=== PATIENT | female | born 1970 | race Caucasian/White ===

== ENCOUNTER 2016-02-19 21:41 | Emergency (ER) | payer OTHER ==
[2016-02-19] MEDS ORDERED: ONDANSETRON 4MG/2ML VIAL (J2405) As Ordered ONE (23:46)
[2016-02-19] MEDS ORDERED: KETOROLAC 30 MG/ML VIAL (J1885) As Ordered ONE (23:46)
[2016-02-20 00:01] LABS: BASO # 0.1 K/mm3 (0.0-0.2); BASO % 0.4 % (0.0-1.0); EOS # 0.2 K/mm3 (0.0-0.50); LARGE UNSTAINED CELL # 0.1 K/mm3 (0.0-0.4); LARGE UNSTAINED CELL % 0.8 % (0.0-4.0); LYMPH # 1.4 K/mm3 (1.5-4.5); LYMPH % 7.1 % (24.0-44.0); MEAN CORPUSCULAR HEMOGLOBIN 30.9 pg (27.0-33.0); MEAN CORPUSCULAR HGB CONC 33.5 g/dl (32.0-36.5); MEAN CORPUSCULAR VOLUME 92.2 fl (80.0-96.0); MONO # 0.8 K/mm3 (0.0-0.8); MONO % 4.8 % (0.0-5.0); NEUTROPHILS # 15.1 K/mm3 (1.8-7.7); NEUTROPHILS % 85.8 % (36.0-66.0); PLATELET COUNT, AUTOMATED 283 k/mm3 (150-450); RED CELL DISTRIBUTION WIDTH 12.5 % (11.5-14.5); WHITE BLOOD COUNT 17.6 K/mm3 (4.0-10.0)
[2016-02-20 00:48] LABS: ALBUMIN 3.8 GM/DL (3.2-5.2); ALBUMIN/GLOBULIN RATIO 1.19 (1.00-1.93); ALKALINE PHOSPHATASE 85 U/L (45-117); ALT/SGPT 18 U/L (12-78); ANION GAP 9 MEQ/L (8-16); AST/SGOT 10 U/L (15-37); BILIRUBIN,DIRECT 0.1 MG/DL (0.0-0.2); BILIRUBIN,TOTAL 0.4 MG/DL (0.2-1.0); BLOOD UREA NITROGEN 12 MG/DL (7-18); CALCIUM LEVEL 8.3 MG/DL (8.5-10.1); CARBON DIOXIDE LEVEL 25 MEQ/L (21-32); CHLORIDE LEVEL 104 MEQ/L (98-107); CREATININE FOR GFR 0.67 MG/DL (0.55-1.02); GLOMERULAR FILTRATION RATE > 60.0 (>58); GLUCOSE, FASTING 121 MG/DL (70-105); SODIUM LEVEL 138 MEQ/L (136-145)
[2016-02-20] MEDS ORDERED: ISOVUE-370 76% 100ML VIAL (Q9967) As Ordered ONE (01:28)
--- NOTE | 2016-02-20 02:50 | REPUSA ---
CLINICAL HISTORY: Abdominal pain. TECHNIQUE: Multiple axial, sagittal and coronal CT images were obtained through the abdomen and pelvi s after administration of intravenous contrast material. COMMENTS: The liver is of uniform attenuation without mass or defect. There is no intra or extrahepatic biliary ductal dilatation. The spleen is normal. The gallbladder is within normal limits. The pancreas is of normal contour and attenuation characteristics. There is no evidence of adrenal mass. Both kidneys demonstrate prompt and equal nephrograms. The kidneys are normal in size, shape and conf iguration. There is no evidence of renal or ureteral mass. No renal or ureteral calculi are identifie d. There is no hydroureter or hydronephrosis. Thickened stomach. Small amount of perisplenic fluid. S cattered fluid-filled small bowels. No evidence for appendicitis. There is no bowel wall thickening. No evidence for small or large shanna l obstruction. There is no evidence of abdominal ascites or lymphadenopathy. There is no evidence of intrinsic or extrinsic bladder mass. There is no pelvic ascites or lymphadeno renato. 6.7 cm left ovarian cyst. Thickened bladder. Images of the lung bases show no evidence of pleural or parenchymal mass. There are no pleural effusi ons. The bony structures are free of lytic or blastic lesions. Multilevel degenerative changes are seen in volving the thoracolumbar spine. Scattered calcifications are seen involving the aorta and major bran ches compatible with atherosclerosis. IMPRESSION: Suspected mild gastritis. Left ovarian cyst. Thickened bladder. Small amount of perisplenic fluid. Scattered fluid-filled small bowels. Nonspecific finding. Possibly mild ileus. Fecal stasis in the cecum. Thank you for your kind referral of this patient.
[2016-02-20] MEDS ORDERED: traMADol 50 MG TAB As Ordered ONE (03:15)
--- NOTE | 2016-02-20 03:25 | EDDOCDS ---
Physician Documentation [facility] Name: Cele Gutierrez Age: 45 yrs Sex: Female : 1970 Arrival Date: 02/19/2016 Time: 21:41 Bed I5 / M5 Private MD: NO PRIMARY PHYSICIAN, . Disposition: 02/20/16 03:07 Discharged to Home/Self Care. Impression: Unspecified ovarian cysts - left. - Condition is Stable. - Discharge Instructions: Ovarian Cyst. - Prescriptions for Ultram 50 mg Oral Tablet - take 1 tablet by ORAL route every 6 hours As needed MDD: 4 tabs; 20 tablet. - Medication Reconciliation, Local Pharmacy Hours form. - Follow up: Emergency Department; When: As needed; Reason: Worsening of conditions. Follow up: Aleksandra Auguste MD; When: Call to arrange an appointment; Reason: Wound/Symptom Recheck, Recheck today's complaints, Worsening of conditions, Continuance of care. - Problem is an ongoing problem. - Symptoms have improved. Historical: - Allergies: no known allergies; - Home Meds: 1. Levothyroxine Oral Unknown once daily 2. Iron CR Oral Unknown daily 3. Calcium + Vitamin D Oral Unknown daily 4. Vitamin B-6 Oral daily 5. seravital daily - PMHx: Anemia; Hypothyroidism; - PSHx: Hysterectomy; - Social history: Smoking status: Patient states former smoker of tobacco. No barriers to communication noted, The patient speaks fluent Pashto. - Family history: No immediate family members are acutely ill. - : The pt / caregiver states he / she is not on anticoagulants. Home medication list is obtained from the patient. - Exposure Risk Screening:: None identified. 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 8 in. (172.72 cm) (R); Pain 8/10; 02/19 00:41 Pain 0/10; kmg1 03:09 BP 111 / 68 RA Sitting (auto/reg); Pulse 68 MON; Resp 20 S; Temp 99.2(T); Pulse Ox 96% cln on R/A; Pain 0/10; 02/18 21:44 Body Mass Index 27.67 (82.55 kg, 172.72 cm) gr2 MDM: 02/18 23:26 Financial registration complete. gjb 23:27 Undo -Financial registration. gjb 23:31 NS 0.9% 1000 ml IV at bolus once ordered. cc10 23:31 Ondansetron 4 mg IVP once ordered. cc10 23:31 ketorolac 30 mg IVP once ordered. cc10 23:31 IV Saline Lock ordered. cc10 23:31 Undress patient appropriately for examination ordered. cc10 23:32 Urine Culture Ordered. EDMS 23:32 Basic Metabolic Profile Ordered. EDMS 23:32 CBC with Diff Ordered. EDMS 23:32 Lipase Ordered. EDMS 23:32 Liver Profile Ordered. EDMS 23:32 Urinalysis Ordered. EDMS 23:32 NOTHING BY MOUTH+DIET ordered. EDMS 02/19 00:28 CBC with Diff Reviewed. cc10 00:28 Urinalysis Reviewed. cc10 00:29 CT ABD & PELVIS: IV Contrast Only Ordered. EDMS 00:58 Financial registration complete. hs2 01:02 Basic Metabolic Profile Reviewed. cc10 01:02 Liver Profile Reviewed. cc10 01:02 Lipase Reviewed. cc10 01:17 [facility] Payment Agreement was scanned into [employer] and attached to record. hs2 03:08 traMADol 50mg- 4 pack 1 packets PO Per package directions; Dispense with patient. Take cc10 1 tab every 6 hours as needed. ordered. Administered Medications: 02/18 23:54 Drug: NS 0.9% 1000 ml [sodium chloride 0.9 % intravenous solution] Route: IV; Rate: kmg1 bolus; Site: right antecubital; 23:55 Drug: Ondansetron 4 mg Route: IVP; Site: right antecubital; kmg1 23:55 Drug: ketorolac 30 mg [ketorolac 30 mg/mL (1 mL) injection solution (1 mL)] Route: IVP; kmg1 Site: right antecubital; 02/19 00:41 Follow up: Pain 0/10 Adult; Response: Pain is resolved kmg1 03:14 Drug: traMADol 50mg- 4 pack 1 packets [tramadol 50 mg tablet (1 tabs)] {Co-Signature: kmg1 su (Maura Brothers RN).} Route: PO; Signatures: Dispatcher [employer] EDShayna Devries RN RN kmg1 Miryam Gill RN RN mcp Coniski, Colin, PA-C PA-C cc10 Medina Garcia Hillary, Reg Reg hs2 Maura blue The chart was reviewed and I authenticate all verbal orders and agree with the evaluation and treatment provided.Attachments: 01:17 COUNT INCLUDES THE [facility] Payment Agreement hs2 MTDD
--- NOTE | 2016-02-20 03:25 | EDDOCDS ---
Nurse's Notes [facility] Name: Cele Gutierrez Age: 45 yrs Sex: Female : 1970 Arrival Date: 02/19/2016 Time: 21:41 Bed I5 / M5 Private MD: NO PRIMARY PHYSICIAN, . Diagnosis: Unspecified ovarian cysts-left Presentation: 02/18 21:54 Presenting complaint: Patient states: Pain in left side since last night. Was seen in [facility] this am and pain still persists. Risk factors: the patient reports no vaginal bleeding. Adult Sepsis Screening: The patient does not have new or worsening altered mentation. Patient's respiratory rate is less than 22. Systolic blood pressure is greater than 100. Patient has a qSOFA score of 0- Negative Sepsis Screen. Suicide/Homicide risk assessment- the patient denies having any suicidal and/or homicidal ideations and does not present with any other emotional, behavioral or mental health complaints. Status: Patient is not a member service specialist or dependent. Transition of care: patient was not received from another setting of care. 21:54 Acuity: LOR Level 3 [facility] 21:54 Method Of Arrival: Walkin/Carried/Asstd [facility] Triage Assessment: 21:57 General: Appears uncomfortable, Behavior is cooperative. Pain: Location: left flank [facility] Pain currently is 8 out of 10 on a pain scale. HIV screening NA for this visit Offered previously. Neurological: No deficits noted. Respiratory: Airway is patent Respiratory effort is even, unlabored. GI: Reports left flank pain. Derm: Skin is pink, warm & dry. EDUCATIONAL AID: 21:57 4, Living 4, LMP N/A - Hysterectomy [facility] Historical: - Allergies: no known allergies; - Home Meds: 1. Levothyroxine Oral Unknown once daily 2. Iron CR Oral Unknown daily 3. Calcium + Vitamin D Oral Unknown daily 4. Vitamin B-6 Oral daily 5. seravital daily - PMHx: Anemia; Hypothyroidism; - PSHx: Hysterectomy; - Social history: Smoking status: Patient states former smoker of tobacco. No barriers to communication noted, The patient speaks fluent Trinidadian. - Family history: No immediate family members are acutely ill. - : The pt / caregiver states he / she is not on anticoagulants. Home medication list is obtained from the patient. - Exposure Risk Screening:: None identified. Screenin/08 00:00 Screening information is obtained from the patient. Fall risk: No risks identified. kmg1 Assistance ADL's: requires no assistance with activities of daily living. Abuse/DV Screen: The patient / caregiver reports he/she is: not in a situation that causes fear, pain or injury. Nutritional screening: No deficits noted. Advance Directives: There is no active DNR order. home support is adequate. Assessment: 00:00 General: Appears in no apparent distress, uncomfortable, Behavior is appropriate for kmg1 age, cooperative, pleasant. Pain: Location: left flank Pain currently is 8 out of 10 on a pain scale. Quality of pain is described as sharp, stabbing. GI: Abdomen is non- distended Bowel sounds present X 4 quads. Abd is soft X 4 quads Abd is tender to palpation in left lower quadrant. 00:41 Reassessment: Patient appears in no apparent distress at this time. Patient denies pain kmg1 at this time. Patient states feeling better. Patient states symptoms have improved. 01:45 Reassessment: Patient appears in no apparent distress at this time. Patient denies pain kmg1 at this time. Patient states feeling better. Patient states symptoms have improved. Continues without discomfort. Resting quietly on stertcher. 03:23 General: Appears in no apparent distress, comfortable, Behavior is appropriate for age, kmg1 cooperative, pleasant. Pain: Denies pain. Vital Signs: 02/18 21:44 BP 135 / 75; Pulse 86; Resp 18 S; Temp 98.6(O); Pulse Ox 97% on R/A; Weight 82.55 kg gr2 (R); Height 5 ft. 8 in. (172.72 cm) (R); Pain 8/10; 02/19 00:41 Pain 0/10; kmg1 03:09 BP 111 / 68 RA Sitting (auto/reg); Pulse 68 MON; Resp 20 S; Temp 99.2(T); Pulse Ox 96% cln on R/A; Pain 0/10; 02/18 21:44 Body Mass Index 27.67 (82.55 kg, 172.72 cm) gr2 Vitals: 02/18 21:44 Log In Time: February 19, 2016 at 21:44. gr2 ED Course: 21:43 Patient visited by Marta Montilla. gr2 21:43 Patient moved to Waiting gr2 21:44 NO PRIMARY PHYSICIAN, . is Private Physician. gr2 21:45 Patient visited by Marta Montilla. gr2 21:45 Patient moved to Pre RCE gr2 21:55 Triage Initiated mcp 21:58 Patient visited by Miryam Gill RN. mcp 23:16 Patient moved to Triage 1 cz 23:26 Anuj Barry PA-C is PHCP. cc10 23:26 Jean Olea DO is Attending Physician. cc10 23:26 Patient visited by Anuj Barry PA-C. cc10 23:26 Patient visited by Anuj Barry PA-C. cc10 23:30 Patient moved to I5 / M5 cz 08 00:00 The patient / caregiver is instructed regarding the plan of care and ED course. kmg1 00:07 Patient visited by Yamileth Waters LPN. cp1 00:07 Inserted saline lock: 20 gauge in right antecubital area and blood collected. The cp1 patient tolerated the procedure well. No procedures done that require assistance. 00:41 Patient visited by Shayna Peters RN. kmg1 01:08 Patient name changed from Cele\S\M\S\[place]\S\ to Cele\S\Juana\S\Brenda. EDMS 01:17 [facility] Payment Agreement was scanned into [employer] and attached to record. hs2 01:59 Patient visited by Yamileth Waters LPN. cp1 03:05 Patient visited by Yamileth Waters LPN. cp1 03:07 Aleksandra Auguste MD is Referral Physician. cc10 03:09 Patient visited by Trena Rainey PCA. cln 03:12 CT ABD & PELVIS: IV Contrast Only Returned. EDMS 03:23 Discontinued lock bleeding controlled, pressure dressing applied, No redness/swelling kmg1 at site. 03:24 Patient visited by Shayna Peters RN. kmg1 Administered Medications: 02/18 23:54 Drug: NS 0.9% 1000 ml [sodium chloride 0.9 % intravenous solution] Route: IV; Rate: kmg1 bolus; Site: right antecubital; 23:55 Drug: Ondansetron 4 mg Route: IVP; Site: right antecubital; kmg1 23:55 Drug: ketorolac 30 mg [ketorolac 30 mg/mL (1 mL) injection solution (1 mL)] Route: IVP; [facility] Site: right antecubital; 02/19 00:41 Follow up: Pain 0/10 Adult; Response: Pain is resolved [facility] 03:14 Drug: traMADol 50mg- 4 pack 1 packets [tramadol 50 mg tablet (1 tabs)] {Co-Signature: [facility] feb (Maura Brothers RN).} Route: PO; Order Results: Lab Order: Basic Metabolic Profile; SPEC'M 02/20/16 00:15 Test: GLUCOSE, FASTING; Value: 121; Range: 70-105; Abnormal: Above high normal; Units: MG/DL; Status: F Test: BLOOD UREA NITROGEN; Value: 12; Range: 7-18; Units: MG/DL; Status: F Test: CREATININE FOR GFR; Value: 0.67; Range: 0.55-1.02; Units: MG/DL; Status: F Test: GLOMERULAR FILTRATION RATE; Value: > 60.0; Range: >58; Status: F Test: SODIUM LEVEL; Value: 138; Range: 136-145; Units: MEQ/L; Status: F Test: POTASSIUM SERUM; Value: 4.0; Range: 3.5-5.1; Units: MEQ/L; Status: F Test: CHLORIDE LEVEL; Value: 104; Range: 98-107; Units: MEQ/L; Status: F Test: CARBON DIOXIDE LEVEL; Value: 25; Range: 21-32; Units: MEQ/L; Status: F Test: ANION GAP; Value: 9; Range: 8-16; Units: MEQ/L; Status: F Test: CALCIUM LEVEL; Value: 8.3; Range: 8.5-10.1; Abnormal: Below low normal; Units: MG/DL; Status: F Test Note: ; Units are mL/min/1.73 m2 Chronic Kidney Disease Staging per NKF: Stage I & II GFR >=60 Normal to Mildly Decreased Stage III GFR 30-59 Moderately Decreased Stage IV GFR 15-29 Severely Decreased Stage V GFR <15 Very Little GFR Left ESRD GFR <15 on ELECTRIC WELL LOGGING OPERATOR Lab Order: CBC with Diff; SPEC'M 02/19/16 23:54 Test: WHITE BLOOD COUNT; Value: 17.6; Range: 4.0-10.0; Abnormal: Above high normal; Units: K/mm3; Status: F Test: RED BLOOD COUNT; Value: 4.49; Range: 4.00-5.40; Units: M/mm3; Status: F Test: HEMOGLOBIN; Value: 13.9; Range: 12.0-16.0; Units: g/dl; Status: F Test: HEMATOCRIT; Value: 41.4; Range: 36.0-47.0; Units: %; Status: F Test: MEAN CORPUSCULAR VOLUME; Value: 92.2; Range: 80.0-96.0; Units: fl; Status: F Test: MEAN CORPUSCULAR HEMOGLOBIN; Value: 30.9; Range: 27.0-33.0; Units: pg; Status: F Test: MEAN CORPUSCULAR HGB CONC; Value: 33.5; Range: 32.0-36.5; Units: g/dl; Status: F Test: RED CELL DISTRIBUTION WIDTH; Value: 12.5; Range: 11.5-14.5; Units: %; Status: F Test: PLATELET COUNT, AUTOMATED; Value: 283; Range: 150-450; Units: k/mm3; Status: F Test: NEUTROPHILS %; Value: 85.8; Range: 36.0-66.0; Abnormal: Above high normal; Units: %; Status: F Test: LYMPH %; Value: 7.1; Range: 24.0-44.0; Abnormal: Below low normal; Units: %; Status: F Test: MONO %; Value: 4.8; Range: 0.0-5.0; Units: %; Status: F Test: EOS %; Value: 1.0; Range: 0.0-3.0; Units: %; Status: F Test: BASO %; Value: 0.4; Range: 0.0-1.0; Units: %; Status: F Test: LARGE UNSTAINED CELL %; Value: 0.8; Range: 0.0-4.0; Units: %; Status: F Test: NEUTROPHILS #; Value: 15.1; Range: 1.8-7.7; Abnormal: Above high normal; Units: K/mm3; Status: F Test: LYMPH #; Value: 1.4; Range: 1.5-4.5; Abnormal: Below low normal; Units: K/mm3; Status: F Test: MONO #; Value: 0.8; Range: 0.0-0.8; Units: K/mm3; Status: F Test: EOS #; Value: 0.2; Range: 0.0-0.50; Units: K/mm3; Status: F Test: BASO #; Value: 0.1; Range: 0.0-0.2; Units: K/mm3; Status: F Test: LARGE UNSTAINED CELL #; Value: 0.1; Range: 0.0-0.4; Units: K/mm3; Status: F Lab Order: Lipase; SPEC' 02/20/16 00:15 Test: LIPASE; Value: 102; Range: 73-393; Units: U/L; Status: F Lab Order: Liver Profile; [facility]' 02/20/16 00:15 Test: AST/SGOT; Value: 10; Range: 15-37; Abnormal: Below low normal; Units: U/L; Status: F Test: ALT/SGPT; Value: 18; Range: 12-78; Units: U/L; Status: F Test: ALKALINE PHOSPHATASE; Value: 85; Range: 45-117; Units: U/L; Status: F Test: BILIRUBIN,TOTAL; Value: 0.4; Range: 0.2-1.0; Units: MG/DL; Status: F Test: BILIRUBIN,DIRECT; Value: 0.1; Range: 0.0-0.2; Units: MG/DL; Status: F Test: TOTAL PROTEIN; Value: 7.0; Range: 6.4-8.2; Units: GM/DL; Status: F Test: ALBUMIN; Value: 3.8; Range: 3.2-5.2; Units: GM/DL; Status: F Test: ALBUMIN/GLOBULIN RATIO; Value: 1.19; Range: 1.00-1.93; Status: F Lab Order: Urinalysis; SPEC' 02/19/16 23:54 Test: APPEARANCE, URINE; Value: CLEAR; Range: CLEAR; Status: F Test: COLOR, URINE; Value: YELLOW; Range: YELLOW; Status: F Test: PH,URINE; Value: 5.0; Range: 5.0-9.0; Units: UNITS; Status: F Test: SPECIFIC GRAVITY URINE AUTO; Value: 1.027; Range: 1.002-1.035; Status: F Test: PROTEIN, URINE AUTO; Value: NEGATIVE; Range: NEGATIVE; Units: mg/dL; Status: F Test: GLUCOSE, URINE (UA) AUTO; Value: NEGATIVE; Range: NEGATIVE; Units: mg/dL; Status: F Test: KETONE, URINE AUTO; Value: TRACE; Range: NEGATIVE; Abnormal: Above high normal; Units: mg/dL; Status: F Test: UROBILINOGEN, URINE AUTO; Value: 0.2; Range: 0.0-2.0; Units: mg/dL; Status: F Test: BILIRUBIN, URINE AUTO; Value: NEGATIVE; Range: NEGATIVE; Status: F Test: NITRITE, URINE AUTO; Value: NEGATIVE; Range: NEGATIVE; Status: F Test: LEUKOCYTE ESTERASE, URINE AUTO; Value: NEGATIVE; Range: NEGATIVE; Status: F Test: BLOOD, URINE BLOOD; Value: 1+; Range: NEGATIVE; Abnormal: Above high normal; Status: F Test: WBC, URINE AUTO; Value: 0; Range: 0-3; Units: /HPF; Status: F Test: RBC, URINE AUTO; Value: 5; Range: 0-3; Abnormal: Above high normal; Units: /HPF; Status: F Test: BACTERIA, URINE AUTO; Value: NEGATIVE; Range: NEGATIVE; Status: F Test: SQUAMOUS EPITHELIAL CELL UR AU; Value: 1; Range: 0-6; Units: /HPF; Status: F Test: MUCUS, URINE; Value: SMALL; Range: NEGATIVE; Status: F Test: HYALINE CAST, URINE AUTO; Value: 0; Range: 0-1; Units: /LPF; Status: F Radiology Order: CT ABD & PELVIS: IV Contrast Only Test: CT ABD & PELVIS: IV Contrast Only REASON FOR EXAMINATION: Diverticulitis; ; CLINICAL HISTORY: Abdominal pain.; TECHNIQUE: Multiple axial, sagittal and coronal CT images were obtained through the abdomen and pelvi; s after administration of intravenous contrast material.; COMMENTS:; The liver is of uniform attenuation without mass or defect. There is no intra or extrahepatic biliary; ductal dilatation. The spleen is normal. The gallbladder is within normal limits. The pancreas is of; normal contour and attenuation characteristics. There is no evidence of adrenal mass.; Both kidneys demonstrate prompt and equal nephrograms. The kidneys are normal in size, shape and conf; iguration. There is no evidence of renal or ureteral mass. No renal or ureteral calculi are identifie; d. There is no hydroureter or hydronephrosis. Thickened stomach. Small amount of perisplenic fluid. S; cattered fluid-filled small bowels.; No evidence for appendicitis. There is no bowel wall thickening. No evidence for small or large shanna; l obstruction. There is no evidence of abdominal ascites or lymphadenopathy.; There is no evidence of intrinsic or extrinsic bladder mass. There is no pelvic ascites or lymphadeno; renato. 6.7 cm left ovarian cyst. Thickened bladder.; Images of the lung bases show no evidence of pleural or parenchymal mass. There are no pleural effusi; ons.; The bony structures are free of lytic or blastic lesions. Multilevel degenerative changes are seen in; volving the thoracolumbar spine. Scattered calcifications are seen involving the aorta and major bran; ches compatible with atherosclerosis.; IMPRESSION:; Suspected mild gastritis.; Left ovarian cyst.; Thickened bladder.; Small amount of perisplenic fluid.; Scattered fluid-filled small bowels. Nonspecific finding. Possibly mild ileus.; Fecal stasis in the cecum.; Thank you for your kind referral of this patient.; ; Outcome: 03:07 Discharge ordered by Provider. cc10 03:23 Discharge Assessment: Patient awake, alert and oriented x 3. No cognitive and/or kmg1 functional deficits noted. Patient verbalized understanding of disposition instructions. Patient awake and alert. patient administered narcotics - no. The following High Risk Discharge criteria are identified: None. Discharged to home ambulatory, with significant other. Condition: improved. Discharge instructions given to patient, Instructed on discharge instructions, follow up and referral plans. medication usage, Demonstrated understanding of instructions, medications, Pt was receptive of discharge instructions/ teaching. Prescriptions given X 1. CT Study completed. Property sent home with patient. 03:24 Patient left the ED. km Signatures: [facility] Shayna Peters RN RN [facility] Miryam Gill RN RN mcp Zecher, Calvin, RN RN cz Perkins, Cheryl,POLICE SERVICE TECHNICIAN POLICE SERVICE TECHNICIAN cp1 Marta Montilla gr2 Anuj Barry, PA-C PA-C cc10 Marizol Murphy, Reg Reg hs2 Trena Rainey, VEHICLE SAFETY INSPECTOR VEHICLE SAFETY INSPECTOR cln Maura Brothers RN su MTDD
--- NOTE | 2016-02-22 12:27 | EDDOCDS ---
Physician Documentation [facility] Name: Cele Gutierrez Age: 45 yrs Sex: Female : 1970 Arrival Date: 02/19/2016 Time: 21:41 Bed I5 / M5 Private MD: NO PRIMARY PHYSICIAN, . Disposition: 02/20/16 03:07 Discharged to Home/Self Care. Impression: Unspecified ovarian cysts - left. - Condition is Stable. - Discharge Instructions: Ovarian Cyst. - Prescriptions for Ultram 50 mg Oral Tablet - take 1 tablet by ORAL route every 6 hours As needed MDD: 4 tabs; 20 tablet. - Medication Reconciliation, Local Pharmacy Hours form. - Follow up: Emergency Department; When: As needed; Reason: Worsening of conditions. Follow up: Aleksandra Auguste MD; When: Call to arrange an appointment; Reason: Wound/Symptom Recheck, Recheck today's complaints, Worsening of conditions, Continuance of care. - Problem is an ongoing problem. - Symptoms have improved. Historical: - Allergies: no known allergies; - Home Meds: 1. Levothyroxine Oral Unknown once daily 2. Iron CR Oral Unknown daily 3. Calcium + Vitamin D Oral Unknown daily 4. Vitamin B-6 Oral daily 5. seravital daily - PMHx: Anemia; Hypothyroidism; - PSHx: Hysterectomy; - Social history: Smoking status: Patient states former smoker of tobacco. No barriers to communication noted, The patient speaks fluent Welsh. - Family history: No immediate family members are acutely ill. - : The pt / caregiver states he / she is not on anticoagulants. Home medication list is obtained from the patient. - Exposure Risk Screening:: None identified. KEY SANDER: 02/18 21:57 4, Living 4, LMP N/A - Hysterectomy mcp Vital Signs: 21:44 BP 135 / 75; Pulse 86; Resp 18 S; Temp 98.6(O); Pulse Ox 97% on R/A; Weight 82.55 kg / gr2 181.99 lbs (R); Height 5 ft. 8 in. (172.72 cm) (R); Pain 8/10; 02/19 00:41 Pain 0/10; kmg1 03:09 BP 111 / 68 RA Sitting (auto/reg); Pulse 68 MON; Resp 20 S; Temp 99.2(T); Pulse Ox 96% cln on R/A; Pain 0/10; 02/18 21:44 Body Mass Index 27.67 (82.55 kg, 172.72 cm) gr2 MDM: 02/18 23:26 Financial registration complete. gjb 23:27 Undo -Financial registration. gjb 23:31 NS 0.9% 1000 ml IV at bolus once ordered. cc10 23:31 Ondansetron 4 mg IVP once ordered. cc10 23:31 ketorolac 30 mg IVP once ordered. cc10 23:31 IV Saline Lock ordered. cc10 23:31 Undress patient appropriately for examination ordered. cc10 23:32 Urine Culture Ordered. EDMS 23:32 Basic Metabolic Profile Ordered. EDMS 23:32 CBC with Diff Ordered. EDMS 23:32 Lipase Ordered. EDMS 23:32 Liver Profile Ordered. EDMS 23:32 Urinalysis Ordered. EDMS 23:32 NOTHING BY MOUTH+DIET ordered. EDMS 02/19 00:28 CBC with Diff Reviewed. cc10 00:28 Urinalysis Reviewed. cc10 00:29 CT ABD & PELVIS: IV Contrast Only Ordered. EDMS 00:58 Financial registration complete. hs2 01:02 Basic Metabolic Profile Reviewed. cc10 01:02 Liver Profile Reviewed. cc10 01:02 Lipase Reviewed. cc10 01:17 [facility] Payment Agreement was scanned into Ord[employer] and attached to record. hs2 03:08 traMADol 50mg- 4 pack 1 packets PO Per package directions; Dispense with patient. Take cc10 1 tab every 6 hours as needed. ordered. 08:05 T-Sheet-- Draft Copy was scanned into [employer] and attached to record. [facility] Administered Medications: 02/18 23:54 Drug: NS 0.9% 1000 ml [sodium chloride 0.9 % intravenous solution] Route: IV; Rate: kmg1 bolus; Site: right antecubital; 23:55 Drug: Ondansetron 4 mg Route: IVP; Site: right antecubital; kmg1 23:55 Drug: ketorolac 30 mg [ketorolac 30 mg/mL (1 mL) injection solution (1 mL)] Route: IVP; kmg1 Site: right antecubital; 02/19 00:41 Follow up: Pain 0/10 Adult; Response: Pain is resolved kmg1 03:14 Drug: traMADol 50mg- 4 pack 1 packets [tramadol 50 mg tablet (1 tabs)] {Co-Signature: km su (Maura Brothers RN).} Route: PO; Signatures: Dispatcher MedHost Shayna Norton RN RN kmg1 Miryam Gill RN RN mcp Coniski, Colin, PA-C PA-C cc10 Medina Garcia Hillary, Reg Reg hs2 [facility] Maura blue The chart was reviewed and I authenticate all verbal orders and agree with the evaluation and treatment provided.Attachments: 01:17 [facility] Payment Agreement hs2 08:05 T-Sheet-- Draft Copy [facility] Chart Complete MTDD
--- NOTE | 2016-02-22 12:27 | EDDOCDS ---
Nurse's Notes [facility] Name: Cele Gutierrez Age: 45 yrs Sex: Female : 1970 Arrival Date: 02/19/2016 Time: 21:41 Bed I5 / M5 Private MD: NO PRIMARY PHYSICIAN, . Diagnosis: Unspecified ovarian cysts-left Presentation: 02/18 21:54 Presenting complaint: Patient states: Pain in left side since last night. Was seen in [facility] this am and pain still persists. Risk factors: the patient reports no vaginal bleeding. Adult Sepsis Screening: The patient does not have new or worsening altered mentation. Patient's respiratory rate is less than 22. Systolic blood pressure is greater than 100. Patient has a qSOFA score of 0- Negative Sepsis Screen. Suicide/Homicide risk assessment- the patient denies having any suicidal and/or homicidal ideations and does not present with any other emotional, behavioral or mental health complaints. Status: Patient is not a senior service aide or dependent. Transition of care: patient was not received from another setting of care. 21:54 Acuity: LOR Level 3 [facility] 21:54 Method Of Arrival: Walkin/Carried/[facility]std [facility] Triage Assessment: 21:57 General: Appears uncomfortable, Behavior is cooperative. Pain: Location: left flank [facility] Pain currently is 8 out of 10 on a pain scale. HIV screening NA for this visit Offered previously. Neurological: No deficits noted. Respiratory: Airway is patent Respiratory effort is even, unlabored. GI: Reports left flank pain. Derm: Skin is pink, warm & dry. ACADEMIC ASSISTANT: 21:57 4, Living 4, LMP N/A - Hysterectomy [facility] Historical: - Allergies: no known allergies; - Home Meds: 1. Levothyroxine Oral Unknown once daily 2. Iron CR Oral Unknown daily 3. Calcium + Vitamin D Oral Unknown daily 4. Vitamin B-6 Oral daily 5. seravital daily - PMHx: Anemia; Hypothyroidism; - PSHx: Hysterectomy; - Social history: Smoking status: Patient states former smoker of tobacco. No barriers to communication noted, The patient speaks fluent Mozambican. - Family history: No immediate family members are acutely ill. - : The pt / caregiver states he / she is not on anticoagulants. Home medication list is obtained from the patient. - Exposure Risk Screening:: None identified. Screenin/08 00:00 Screening information is obtained from the patient. Fall risk: No risks identified. kmg1 Assistance ADL's: requires no assistance with activities of daily living. Abuse/DV Screen: The patient / caregiver reports he/she is: not in a situation that causes fear, pain or injury. Nutritional screening: No deficits noted. Advance Directives: There is no active DNR order. home support is adequate. Assessment: 00:00 General: Appears in no apparent distress, uncomfortable, Behavior is appropriate for kmg1 age, cooperative, pleasant. Pain: Location: left flank Pain currently is 8 out of 10 on a pain scale. Quality of pain is described as sharp, stabbing. GI: Abdomen is non- distended Bowel sounds present X 4 quads. Abd is soft X 4 quads Abd is tender to palpation in left lower quadrant. 00:41 Reassessment: Patient appears in no apparent distress at this time. Patient denies pain kmg1 at this time. Patient states feeling better. Patient states symptoms have improved. 01:45 Reassessment: Patient appears in no apparent distress at this time. Patient denies pain kmg1 at this time. Patient states feeling better. Patient states symptoms have improved. Continues without discomfort. Resting quietly on stertcher. 03:23 General: Appears in no apparent distress, comfortable, Behavior is appropriate for age, kmg1 cooperative, pleasant. Pain: Denies pain. Vital Signs: 02/18 21:44 BP 135 / 75; Pulse 86; Resp 18 S; Temp 98.6(O); Pulse Ox 97% on R/A; Weight 82.55 kg gr2 (R); Height 5 ft. 8 in. (172.72 cm) (R); Pain 8/10; 02/19 00:41 Pain 0/10; kmg1 03:09 BP 111 / 68 RA Sitting (auto/reg); Pulse 68 MON; Resp 20 S; Temp 99.2(T); Pulse Ox 96% cln on R/A; Pain 0/10; 02/18 21:44 Body Mass Index 27.67 (82.55 kg, 172.72 cm) gr2 Vitals: 02/18 21:44 Log In Time: February 19, 2016 at 21:44. gr2 ED Course: 21:43 Patient visited by Marta Montilla. gr2 21:43 Patient moved to Waiting gr2 21:44 NO PRIMARY PHYSICIAN, . is Private Physician. gr2 21:45 Patient visited by Marta Montilla. gr2 21:45 Patient moved to Pre RCE gr2 21:55 Triage Initiated mcp 21:58 Patient visited by Miryam Gill RN. mcp 23:16 Patient moved to Triage 1 cz 23:26 Anuj Barry PA-C is PHCP. cc10 23:26 Jean Olea DO is Attending Physician. cc10 23:26 Patient visited by Anuj Barry PA-C. cc10 23:26 Patient visited by Anuj Barry PA-C. cc10 23:30 Patient moved to I5 / M5 cz 08 00:00 The patient / caregiver is instructed regarding the plan of care and ED course. kmg1 00:07 Patient visited by Yamileth Waters LPN. cp1 00:07 Inserted saline lock: 20 gauge in right antecubital area and blood collected. The cp1 patient tolerated the procedure well. No procedures done that require assistance. 00:41 Patient visited by Shayna Peters RN. kmg1 01:08 Patient name changed from Cele\S\M\S\[place]\S\ to Cele\S\Juana\S\Brenda. EDMS 01:17 [facility] Payment Agreement was scanned into citizenmade and attached to record. hs2 01:59 Patient visited by Yamileth Waters LPN. cp1 03:05 Patient visited by Yamileth Waters LPN. cp1 03:07 Aleksandra Auguste MD is Referral Physician. cc10 03:09 Patient visited by Trena Rainey PCA. cln 03:12 CT ABD & PELVIS: IV Contrast Only Returned. EDMS 03:23 Discontinued lock bleeding controlled, pressure dressing applied, No redness/swelling kmg1 at site. 03:24 Patient visited by Shayna Peters RN. kmg1 08:05 T-Sheet-- Draft Copy was scanned into citizenmade and attached to record. seh Administered Medications: 02/18 23:54 Drug: NS 0.9% 1000 ml [sodium chloride 0.9 % intravenous solution] Route: IV; Rate: kmg1 bolus; Site: right antecubital; 23:55 Drug: Ondansetron 4 mg Route: IVP; Site: right antecubital; [facility] [place] 23:55 Drug: ketorolac 30 mg [ketorolac 30 mg/mL (1 mL) injection solution (1 mL)] Route: IVP; [facility] [place] Site: right antecubital; 02/19 00:41 Follow up: Pain 0/10 Adult; Response: Pain is resolved [facility] [place] 03:14 Drug: traMADol 50mg- 4 pack 1 packets [tramadol 50 mg tablet (1 tabs)] {Co-Signature: [facility] [place] feb (Maura Brothers RN).} Route: PO; Order Results: Lab Order: Basic Metabolic Profile; SPEC'M 02/20/16 00:15 Test: GLUCOSE, FASTING; Value: 121; Range: 70-105; Abnormal: Above high normal; Units: MG/DL; Status: F Test: BLOOD UREA NITROGEN; Value: 12; Range: 7-18; Units: MG/DL; Status: F Test: CREATININE FOR GFR; Value: 0.67; Range: 0.55-1.02; Units: MG/DL; Status: F Test: GLOMERULAR FILTRATION RATE; Value: > 60.0; Range: >58; Status: F Test: SODIUM LEVEL; Value: 138; Range: 136-145; Units: MEQ/L; Status: F Test: POTASSIUM SERUM; Value: 4.0; Range: 3.5-5.1; Units: MEQ/L; Status: F Test: CHLORIDE LEVEL; Value: 104; Range: 98-107; Units: MEQ/L; Status: F Test: CARBON DIOXIDE LEVEL; Value: 25; Range: 21-32; Units: MEQ/L; Status: F Test: ANION GAP; Value: 9; Range: 8-16; Units: MEQ/L; Status: F Test: CALCIUM LEVEL; Value: 8.3; Range: 8.5-10.1; Abnormal: Below low normal; Units: MG/DL; Status: F Test Note: ; Units are mL/min/1.73 m2 Chronic Kidney Disease Staging per NKF: Stage I & II GFR >=60 Normal to Mildly Decreased Stage III GFR 30-59 Moderately Decreased Stage IV GFR 15-29 Severely Decreased Stage V GFR <15 Very Little GFR Left ESRD GFR <15 on POULTRY SCALDER Lab Order: CBC with Diff; JACOB'Constance 02/19/16 23:54 Test: WHITE BLOOD COUNT; Value: 17.6; Range: 4.0-10.0; Abnormal: Above high normal; Units: K/mm3; Status: F Test: RED BLOOD COUNT; Value: 4.49; Range: 4.00-5.40; Units: M/mm3; Status: F Test: HEMOGLOBIN; Value: 13.9; Range: 12.0-16.0; Units: g/dl; Status: F Test: HEMATOCRIT; Value: 41.4; Range: 36.0-47.0; Units: %; Status: F Test: MEAN CORPUSCULAR VOLUME; Value: 92.2; Range: 80.0-96.0; Units: fl; Status: F Test: MEAN CORPUSCULAR HEMOGLOBIN; Value: 30.9; Range: 27.0-33.0; Units: pg; Status: F Test: MEAN CORPUSCULAR HGB CONC; Value: 33.5; Range: 32.0-36.5; Units: g/dl; Status: F Test: RED CELL DISTRIBUTION WIDTH; Value: 12.5; Range: 11.5-14.5; Units: %; Status: F Test: PLATELET COUNT, AUTOMATED; Value: 283; Range: 150-450; Units: k/mm3; Status: F Test: NEUTROPHILS %; Value: 85.8; Range: 36.0-66.0; Abnormal: Above high normal; Units: %; Status: F Test: LYMPH %; Value: 7.1; Range: 24.0-44.0; Abnormal: Below low normal; Units: %; Status: F Test: MONO %; Value: 4.8; Range: 0.0-5.0; Units: %; Status: F Test: EOS %; Value: 1.0; Range: 0.0-3.0; Units: %; Status: F Test: BASO %; Value: 0.4; Range: 0.0-1.0; Units: %; Status: F Test: LARGE UNSTAINED CELL %; Value: 0.8; Range: 0.0-4.0; Units: %; Status: F Test: NEUTROPHILS #; Value: 15.1; Range: 1.8-7.7; Abnormal: Above high normal; Units: K/mm3; Status: F Test: LYMPH #; Value: 1.4; Range: 1.5-4.5; Abnormal: Below low normal; Units: K/mm3; Status: F Test: MONO #; Value: 0.8; Range: 0.0-0.8; Units: K/mm3; Status: F Test: EOS #; Value: 0.2; Range: 0.0-0.50; Units: K/mm3; Status: F Test: BASO #; Value: 0.1; Range: 0.0-0.2; Units: K/mm3; Status: F Test: LARGE UNSTAINED CELL #; Value: 0.1; Range: 0.0-0.4; Units: K/mm3; Status: F Lab Order: Lipase; [facility] 02/20/16 00:15 Test: LIPASE; Value: 102; Range: 73-393; Units: U/L; Status: F Lab Order: Liver Profile; [facility] 02/20/16 00:15 Test: AST/SGOT; Value: 10; Range: 15-37; Abnormal: Below low normal; Units: U/L; Status: F Test: ALT/SGPT; Value: 18; Range: 12-78; Units: U/L; Status: F Test: ALKALINE PHOSPHATASE; Value: 85; Range: 45-117; Units: U/L; Status: F Test: BILIRUBIN,TOTAL; Value: 0.4; Range: 0.2-1.0; Units: MG/DL; Status: F Test: BILIRUBIN,DIRECT; Value: 0.1; Range: 0.0-0.2; Units: MG/DL; Status: F Test: TOTAL PROTEIN; Value: 7.0; Range: 6.4-8.2; Units: GM/DL; Status: F Test: ALBUMIN; Value: 3.8; Range: 3.2-5.2; Units: GM/DL; Status: F Test: ALBUMIN/GLOBULIN RATIO; Value: 1.19; Range: 1.00-1.93; Status: F Lab Order: Urinalysis; [facility] 02/19/16 23:54 Test: APPEARANCE, URINE; Value: CLEAR; Range: CLEAR; Status: F Test: COLOR, URINE; Value: YELLOW; Range: YELLOW; Status: F Test: PH,URINE; Value: 5.0; Range: 5.0-9.0; Units: UNITS; Status: F Test: SPECIFIC GRAVITY URINE AUTO; Value: 1.027; Range: 1.002-1.035; Status: F Test: PROTEIN, URINE AUTO; Value: NEGATIVE; Range: NEGATIVE; Units: mg/dL; Status: F Test: GLUCOSE, URINE (UA) AUTO; Value: NEGATIVE; Range: NEGATIVE; Units: mg/dL; Status: F Test: KETONE, URINE AUTO; Value: TRACE; Range: NEGATIVE; Abnormal: Above high normal; Units: mg/dL; Status: F Test: UROBILINOGEN, URINE AUTO; Value: 0.2; Range: 0.0-2.0; Units: mg/dL; Status: F Test: BILIRUBIN, URINE AUTO; Value: NEGATIVE; Range: NEGATIVE; Status: F Test: NITRITE, URINE AUTO; Value: NEGATIVE; Range: NEGATIVE; Status: F Test: LEUKOCYTE ESTERASE, URINE AUTO; Value: NEGATIVE; Range: NEGATIVE; Status: F Test: BLOOD, URINE BLOOD; Value: 1+; Range: NEGATIVE; Abnormal: Above high normal; Status: F Test: WBC, URINE AUTO; Value: 0; Range: 0-3; Units: /HPF; Status: F Test: RBC, URINE AUTO; Value: 5; Range: 0-3; Abnormal: Above high normal; Units: /HPF; Status: F Test: BACTERIA, URINE AUTO; Value: NEGATIVE; Range: NEGATIVE; Status: F Test: SQUAMOUS EPITHELIAL CELL UR AU; Value: 1; Range: 0-6; Units: /HPF; Status: F Test: MUCUS, URINE; Value: SMALL; Range: NEGATIVE; Status: F Test: HYALINE CAST, URINE AUTO; Value: 0; Range: 0-1; Units: /LPF; Status: F Lab Order: Urine Culture; SPEC'M 02/19/16 23:54 Test: URINE CULTURE; Value: URINE CULTURE RESULT; Status: F Test: URINE CULTURE; Value: NO GROWTH CLINICAL SIGNIFICANCE 2 OR MORE ORGANISMS; Status: F Radiology Order: CT ABD & PELVIS: IV Contrast Only Test: CT ABD & PELVIS: IV Contrast Only REASON FOR EXAMINATION: Diverticulitis; ; CLINICAL HISTORY: Abdominal pain.; TECHNIQUE: Multiple axial, sagittal and coronal CT images were obtained through the abdomen and pelvi; s after administration of intravenous contrast material.; COMMENTS:; The liver is of uniform attenuation without mass or defect. There is no intra or extrahepatic biliary; ductal dilatation. The spleen is normal. The gallbladder is within normal limits. The pancreas is of; normal contour and attenuation characteristics. There is no evidence of adrenal mass.; Both kidneys demonstrate prompt and equal nephrograms. The kidneys are normal in size, shape and conf; iguration. There is no evidence of renal or ureteral mass. No renal or ureteral calculi are identifie; d. There is no hydroureter or hydronephrosis. Thickened stomach. Small amount of perisplenic fluid. S; cattered fluid-filled small bowels.; No evidence for appendicitis. There is no bowel wall thickening. No evidence for small or large shanna; l obstruction. There is no evidence of abdominal ascites or lymphadenopathy.; There is no evidence of intrinsic or extrinsic bladder mass. There is no pelvic ascites or lymphadeno; renato. 6.7 cm left ovarian cyst. Thickened bladder.; Images of the lung bases show no evidence of pleural or parenchymal mass. There are no pleural effusi; ons.; The bony structures are free of lytic or blastic lesions. Multilevel degenerative changes are seen in; volving the thoracolumbar spine. Scattered calcifications are seen involving the aorta and major bran; ches compatible with atherosclerosis.; IMPRESSION:; Suspected mild gastritis.; Left ovarian cyst.; Thickened bladder.; Small amount of perisplenic fluid.; Scattered fluid-filled small bowels. Nonspecific finding. Possibly mild ileus.; Fecal stasis in the cecum.; Thank you for your kind referral of this patient.; ; Outcome: 03:07 Discharge ordered by Provider. cc10 03:23 Discharge Assessment: Patient awake, alert and oriented x 3. No cognitive and/or kmg1 functional deficits noted. Patient verbalized understanding of disposition instructions. Patient awake and alert. patient administered narcotics - no. The following High Risk Discharge criteria are identified: None. Discharged to home ambulatory, with significant other. Condition: improved. Discharge instructions given to patient, Instructed on discharge instructions, follow up and referral plans. medication usage, Demonstrated understanding of instructions, medications, Pt was receptive of discharge instructions/ teaching. Prescriptions given X 1. CT Study completed. Property sent home with patient. 03:24 Patient left the ED. km Signatures: Dispatcher Med[employer] EDMS Shayna Peters, RN RN kmg1 Miryam Gill RN RN mcp Zecher, Calvin, BUFFY BAER cz Yamileth Waters,COIN MACHINE SERVICER REPAIRER COIN MACHINE SERVICER REPAIRER cp1 Marta Montilla gr2 Anuj Barry, PA-C PA-C cc10 Marizol Murphy, Reg Reg hs2 Trena Rainey, GEODESIST GEODESIST joe Owens, Alessandra blue Chart Complete MTDD
--- NOTE | 2016-02-22 12:27 | EDDOCDS ---
Physician Documentation [facility] Name: Cele Gutierrez Age: 45 yrs Sex: Female : 1970 Arrival Date: 02/19/2016 Time: 21:41 Bed I5 / M5 Private MD: NO PRIMARY PHYSICIAN, . Disposition: 02/20/16 03:07 Discharged to Home/Self Care. Impression: Unspecified ovarian cysts - left. - Condition is Stable. - Discharge Instructions: Ovarian Cyst. - Prescriptions for Ultram 50 mg Oral Tablet - take 1 tablet by ORAL route every 6 hours As needed MDD: 4 tabs; 20 tablet. - Medication Reconciliation, Local Pharmacy Hours form. - Follow up: Emergency Department; When: As needed; Reason: Worsening of conditions. Follow up: Aleksandra Auguste MD; When: Call to arrange an appointment; Reason: Wound/Symptom Recheck, Recheck today's complaints, Worsening of conditions, Continuance of care. - Problem is an ongoing problem. - Symptoms have improved. Historical: - Allergies: no known allergies; - Home Meds: 1. Levothyroxine Oral Unknown once daily 2. Iron CR Oral Unknown daily 3. Calcium + Vitamin D Oral Unknown daily 4. Vitamin B-6 Oral daily 5. seravital daily - PMHx: Anemia; Hypothyroidism; - PSHx: Hysterectomy; - Social history: Smoking status: Patient states former smoker of tobacco. No barriers to communication noted, The patient speaks fluent Bengali. - Family history: No immediate family members are acutely ill. - : The pt / caregiver states he / she is not on anticoagulants. Home medication list is obtained from the patient. - Exposure Risk Screening:: None identified. DYNAMO REPAIRER: 02/18 21:57 4, Living 4, LMP N/A - Hysterectomy mcp Vital Signs: 21:44 BP 135 / 75; Pulse 86; Resp 18 S; Temp 98.6(O); Pulse Ox 97% on R/A; Weight 82.55 kg / gr2 181.99 lbs (R); Height 5 ft. 8 in. (172.72 cm) (R); Pain 8/10; 02/19 00:41 Pain 0/10; kmg1 03:09 BP 111 / 68 RA Sitting (auto/reg); Pulse 68 MON; Resp 20 S; Temp 99.2(T); Pulse Ox 96% cln on R/A; Pain 0/10; 02/18 21:44 Body Mass Index 27.67 (82.55 kg, 172.72 cm) gr2 MDM: 02/18 23:26 Financial registration complete. gjb 23:27 Undo -Financial registration. gjb 23:31 NS 0.9% 1000 ml IV at bolus once ordered. cc10 23:31 Ondansetron 4 mg IVP once ordered. cc10 23:31 ketorolac 30 mg IVP once ordered. cc10 23:31 IV Saline Lock ordered. cc10 23:31 Undress patient appropriately for examination ordered. cc10 23:32 Urine Culture Ordered. EDMS 23:32 Basic Metabolic Profile Ordered. EDMS 23:32 CBC with Diff Ordered. EDMS 23:32 Lipase Ordered. EDMS 23:32 Liver Profile Ordered. EDMS 23:32 Urinalysis Ordered. EDMS 23:32 NOTHING BY MOUTH+DIET ordered. EDMS 02/19 00:28 CBC with Diff Reviewed. cc10 00:28 Urinalysis Reviewed. cc10 00:29 CT ABD & PELVIS: IV Contrast Only Ordered. EDMS 00:58 Financial registration complete. hs2 01:02 Basic Metabolic Profile Reviewed. cc10 01:02 Liver Profile Reviewed. cc10 01:02 Lipase Reviewed. cc10 01:17 [facility] Payment Agreement was scanned into [employer] and attached to record. hs2 03:08 traMADol 50mg- 4 pack 1 packets PO Per package directions; Dispense with patient. Take cc10 1 tab every 6 hours as needed. ordered. 08:05 T-Sheet-- Draft Copy was scanned into [employer] and attached to record. [facility] Administered Medications: 02/18 23:54 Drug: NS 0.9% 1000 ml [sodium chloride 0.9 % intravenous solution] Route: IV; Rate: kmg1 bolus; Site: right antecubital; 23:55 Drug: Ondansetron 4 mg Route: IVP; Site: right antecubital; kmg1 23:55 Drug: ketorolac 30 mg [ketorolac 30 mg/mL (1 mL) injection solution (1 mL)] Route: IVP; kmg1 Site: right antecubital; 02/19 00:41 Follow up: Pain 0/10 Adult; Response: Pain is resolved kmg1 03:14 Drug: traMADol 50mg- 4 pack 1 packets [tramadol 50 mg tablet (1 tabs)] {Co-Signature: km su (Maura Brothers RN).} Route: PO; Signatures: Dispatcher [employer] Shayna Norton RN RN kmg1 Miryam Gill RN RN mcp Coniski, Colin, PA-C PA-C cc10 Medina Garcia Hillary, Reg Reg hs2 [facility] Maura blue The chart was reviewed and I authenticate all verbal orders and agree with the evaluation and treatment provided.Attachments: 01:17 [facility] Payment Agreement hs2 08:05 T-Sheet-- Draft Copy [facility] Chart Complete MTDD
== END 2016-02-20 03:24 | disposition home or self-care (01) ==
LOC: M ED 21:41
DX: N83.202 Unspecified ovarian cyst, left side (principal); E03.9 Hypothyroidism, unspecified; D64.9 Anemia, unspecified; Z79.52 Long term (current) use of systemic steroids; Z87.891 Personal history of nicotine dependence
CPT/HCPCS: 36415; 74177; 80048; 80076; 81001; 83690; 85025; 87086; 96374; 96375; 99284; J1885; J2405; Q9967

== ENCOUNTER → 2016-02-19 | Outpatient (REF) | payer OTHER ==
[~2016-02-19] MED LIST: CALCTAB68 PO; FERR325T3 PO; LEVO25TA5 PO; PERC5TAB6 PO; Vitamin D2 PO
== END ==
LOC: M WUC 18:41
PROVIDERS: ATTEND Physician Assistant
DX: R10.32 Left lower quadrant pain (principal)

== ENCOUNTER → 2016-03-09 | Outpatient (CLI) | payer OTHER ==
--- NOTE | 2016-03-09 15:34 | REP ---
Pelvic sonogram: History: Left ovarian cyst. Comparison CT study February 20, 2016. Sonographic findings: Transabdominal and transvaginal scanning are performed. The uterus is surgically absent. Bladder prince are smooth and thin. No free fluid is seen. There is a cystic lesion in the left adnexa measuring 6.8 x 7.7 x 4.8 cm corresponding to the CT findings. There is also a 2.0 x 1.8 x 2.0 cm cystic area at the left adnexa. Both of these cystic lesions appear sonographically simple. They are anechoic without mural nodularity or thick septation. The right ovary measures 2.6 x 2.1 x 2.7 cm. It contains a 1 cm follicle cyst. Impression: 7.7 cm sonographically simple cystic lesion left ovary. No mural nodularity or thickened septations. Neoplastic cyst cannot be excluded. No free fluid.
== END ==
LOC: M WHC 09:48
PROVIDERS: ATTEND Obstetrics & Gynecology
DX: N83.202 Unspecified ovarian cyst, left side (principal)

== ENCOUNTER → 2016-04-17 | Outpatient (CLI) | payer OTHER ==
--- NOTE | 2016-04-17 10:11 | REP ---
PELVIC ULTRASOUND: Real-time sonographic evaluation of the pelvis is performed utilizing transabdominal and endovaginal technique. The bladder measures 8.1 x 10.0 x 5.5 cm. The patient has had a hysterectomy in April 2015. The right ovary measures 3.2 x 2.4 x 2.4 cm and contains a small cyst with an internal daughter cyst. This cyst measures 3.4 x 2.1 x 2.3 cm; this is new. Left ovary measures 7. 3 x 4.3 x 6.6 cm and contains a cyst 7.0 x 4.8 x 6.9 cm similar to the prior exam. There is a dominant follicle in the left ovary 1.5 x 1.9 x 1.8 cm. No free fluid is seen. IMPRESSION: Large left ovarian cyst essentially unchanged. New small cyst right ovary.
== END ==
LOC: M WHC 09:00
PROVIDERS: ATTEND Obstetrics & Gynecology
DX: N83.202 Unspecified ovarian cyst, left side (principal); N83.201 Unspecified ovarian cyst, right side

== ENCOUNTER → 2016-08-11 | Outpatient (CLI) | payer OTHER ==
[~2016-08-11] MED LIST changes: +AMOX500T PO; +PERC5TAB12 PO; -PERC5TAB6 PO
--- NOTE | 2016-08-11 12:43 | REP ---
Clinical: Left pelvic pain. Comparison: 04/17/2016, 03/09/2016, 10/28/2014. Technique: Transabdominal pelvic ultrasound followed by transvaginal examination for better evaluation of the adnexa. Findings: Bladder is unremarkable and measures 9.9 x 10.7 x 6.4 cm. The patient is status post hysterectomy. The right ovary measures 4.0 x 2.4 x 3.4 cm and includes two 1.9 cm simple cysts which represent changes from prior examinations and are likely physiologic. The left ovary measures 7.7 x 4.9 x 6.5 cm and is dominated by a single large 7 cm simple appearing cyst and smaller 2 cm cyst with little residual ovarian tissue noted. The large 7 cm cyst remains relatively stable when compared to examinations through 10/28/2014. Impression: 1. Status post hysterectomy with trace pelvic fluid and no adnexal mass lesion. 2. Bilateral ovarian cysts (left greater than right) as described above. Right ovarian cysts are likely transient and physiologic while the large left ovarian cyst remains essentially stable compared to 10/28/2014.
== END ==
LOC: M WHC 09:32
PROVIDERS: ATTEND Obstetrics & Gynecology
DX: N83.202 Unspecified ovarian cyst, left side (principal); N83.201 Unspecified ovarian cyst, right side

== ENCOUNTER → 2016-08-30 | Day surgery (SDC) | payer MEDICAID, OTHER ==
[~2016-08-30] VITALS: Ht 172.7 cm; Wt 83.9 kg
[~2016-08-30] MED LIST changes: +BUPIVACAINE HCL 0.25% 30 ML VIAL As Ordered ONE; +KETOROLAC 30 MG/ML VIAL (J1885) As Ordered ONE; +KETOROLAC 30 MG/ML VIAL (J1885) IV PRN; +KETOROLAC 30 MG/ML VIAL (J1885) IV SCH; +LIDOCAINE 2% INJ 100 MG/5 ML SDV (FOR ANES.) As Ordered ONE; +LR 1,000 ML IV ONE; +LR 1,000 ML IV SCH; +MIDAZOLAM INJ 2 MG/2 ML VIAL (J2250) As Ordered ONE; +ONDANSETRON 4MG/2ML VIAL (J2405) As Ordered ONE; +ONDANSETRON 4MG/2ML VIAL (J2405) IV PRN; +PERCOCET 5MG/325MG TAB PO PRN; +PROPOFOL 200 MG/20 ML VIAL As Ordered ONE; +ROCURONIUM BROMIDE 50 MG/5 ML VIAL/SYRINGE As Ordered ONE; +dexameTHASONE 4 MG/ML 1ML VIAL (J1100) As Ordered ONE; +fentaNYL 100 MCG/2 ML INJECTION (J3010) As Ordered ONE; +fentaNYL 100 MCG/2 ML INJECTION (J3010) IV PRN
[2016-08-30 09:28] LABS: MEAN CORPUSCULAR HEMOGLOBIN 32.3 pg (27.0-33.0); MEAN CORPUSCULAR HGB CONC 34.9 g/dl (32.0-36.5); MEAN CORPUSCULAR VOLUME 92.5 fl (80.0-96.0); RED CELL DISTRIBUTION WIDTH 12.2 % (11.5-14.5); WHITE BLOOD COUNT 6.6 K/mm3 (4.0-10.0)
[2016-08-30 14:00] VITALS: BP 104/58
--- NOTE | 2016-08-31 05:18 | RO ---
DATE OF PROCEDURE: 08/30/2016 PREOPERATIVE DIAGNOSES: 1. Left ovarian cyst. 2. Pelvic pain. POSTOPERATIVE DIAGNOSES: 1. Left ovarian cyst. 2. Pelvic pain. PROCEDURE PERFORMED: Laparoscopic bilateral salpingo-oophorectomy. SURGEON: Aleksandra Auguste MD SHOEMAKER APPRENTICE: Geoff Yap DO ANESTHESIA: General endotracheal anesthesia. ESTIMATED BLOOD LOSS: 20 mL. INTRAVENOUS FLUIDS: 1 liter of lactated Ringer solution. URINE OUTPUT: 400 mL. SPECIMEN: Bilateral adnexa. OPERATIVE FINDING: Patient with approximately 8 cm left ovarian cyst. PREOPERATIVE ANTIBIOTICS: None. DESCRIPTION OF OPERATION: After informed consent was obtained and written content was reviewed, the patient was brought to the operating room where general endotracheal anesthesia was obtained. She was then placed in lithotomy position, was prepped and draped in normal sterile fashion. A time-out in the operating room was performed identifying the patient, the procedure to be performed, as well as drug allergies. A Santoyo catheter was then placed and set to gravity. Gloves were changed. Attention was turned to the patient's abdomen where 0.25% Marcaine was infused ion umbilical region. This area was incised and an 11 mm trocar sleeve was advanced through this incision. Intraabdominal placement was confirmed. Pneumoperitoneum was then obtained with CO2 gas. Two additional port sites were placed left to the right of the umbilicus. These areas were infused with 0.25% Marcaine. Incision was made in each one of these incisions . A 5 mm trocar and sleeve was advanced through each on of these incisions under direct visualization. Next, the patient's abdomen was surveyed with the above noted findings. The right fallopian tube was then placed on traction. Using harmonic scalpel Aayush device, the infundibulopelvic ligament was cauterized and ligated with good hemostasis. The specimen was then placed in an Endo Catch bag and was removed intact through the umbilical incision. In a similar fashion, the left adnexa was placed on traction. Using harmonic Aayush scalpel device, the left infundibulopelvic ligament was cauterized and ligated with good hemostasis noted. The specimen was then placed in the Endo Catch bag. It was brought to the level of incision where it was ruptured and drained at the skin incision. Specimen was then removed. Surgical sites inspected and noted to be hemostatic. Susie was applied along the surgical sites for hemostasis. The abdomen was then irrigated and suctioned. The umbilical port site was then closed using a Rakesh-Issac system with #0 Vicryl. Next, the pneumoperitoneum was then released. Trocar and instruments were removed. The three skin incisions were closed with #4-0 Monocryl and dressed with Dermabond. The patient was then awakened from general anesthesia and taken to recovery in stable condition. Counts were correct.
== END | disposition home or self-care (01) ==
LOC: M SDC 09:00
PROVIDERS: ATTEND Obstetrics & Gynecology
DX: N83.202 Unspecified ovarian cyst, left side (principal); R10.2 Pelvic and perineal pain; E03.9 Hypothyroidism, unspecified; R01.1 Cardiac murmur, unspecified; D64.9 Anemia, unspecified; Z79.899 Other long term (current) drug therapy; Z90.710 Acquired absence of both cervix and uterus; Z98.51 Tubal ligation status; Z87.891 Personal history of nicotine dependence
CPT/HCPCS: 36415; 58661; 85027; 86850; 86900; 86901; 88307; A6024; J1100; J1885; J2250; J2405; J3010

== ENCOUNTER → 2017-04-19 | Outpatient (REF) | payer OTHER ==
[2017-04-19 20:19] LABS: BASO # 0.1 10^3/uL (0.0-0.2); BASO % 0.8 % (0.0-1.0); EOS # 0.2 10^3/uL (0.0-0.50); EOS % 2.3 % (0.0-3.0); HEMATOCRIT 39.4 % (36.0-47.0); HEMOGLOBIN 12.8 g/dl (12.0-16.0); IMMATURE GRANULOCYTE % 0.3 % (0-3.0); LYMPH # 1.8 10^3/uL (1.5-4.5); LYMPH % 27.4 % (24.0-44.0); MEAN CORPUSCULAR HEMOGLOBIN 30.8 pg (27.0-33.0); MEAN CORPUSCULAR HGB CONC 32.5 g/dl (32.0-36.5); MEAN CORPUSCULAR VOLUME 94.7 fl (80.0-96.0); MONO # 0.5 10^3/uL (0.0-0.8); MONO % 7.6 % (0.0-5.0); NEUTROPHILS % 61.6 % (36.0-66.0); PLATELET COUNT, AUTOMATED 255 10^3/uL (150-450); RED BLOOD COUNT 4.16 10^6/uL (4.00-5.40); RED CELL DISTRIBUTION WIDTH 12.2 % (11.5-14.5); WHITE BLOOD COUNT 6.4 10^3/uL (4.0-10.0)
[2017-04-19 20:29] LABS: TOTAL 25(OH) VITAMIN D 68.8 NG/ML (30.0-100.0)
[2017-04-19 20:30] LABS: ALBUMIN 3.9 GM/DL (3.2-5.2); ALKALINE PHOSPHATASE 103 U/L (45-117); ALT/SGPT 21 U/L (12-78); ANION GAP 8 MEQ/L (8-16); AST/SGOT 14 U/L (7-37); BILIRUBIN,TOTAL 0.2 MG/DL (0.2-1.0); BLOOD UREA NITROGEN 17 MG/DL (7-18); CALCIUM LEVEL 8.6 MG/DL (8.5-10.1); CARBON DIOXIDE LEVEL 29 MEQ/L (21-32); CHLORIDE LEVEL 106 MEQ/L (98-107); CHOLESTEROL LEVEL 214 MG/DL (<200); CHOLESTEROL RISK RATIO 4.755 (<5); CREATININE FOR GFR 0.73 MG/DL (0.55-1.30); FERRITIN 182 NG/ML (8-252); FREE T4 0.82 NG/DL (0.76-1.46); GLOMERULAR FILTRATION RATE > 60.0 (>58); GLUCOSE, FASTING 131 MG/DL (70-100); HDL CHOLESTEROL 45 MG/DL (>40); IRON (FE) 87 UG/DL (50-170); LDL CHOLESTEROL 99.8 MG/DL (<100); NON-HDL-C 169 MG/DL; PERCENT SATURATION 30.2 % (13.2-45.0); SODIUM LEVEL 143 MEQ/L (136-145); TOTAL IRON BINDING CAPACITY 288 UG/DL (250-450); TOTAL PROTEIN 6.9 GM/DL (6.4-8.2); TRIGLYCERIDES LEVEL 346 MG/DL (<150)
== END ==
LOC: M SFHCADAM 13:18
DX: D50.0 Iron deficiency anemia secondary to blood loss (chronic) (principal); E03.9 Hypothyroidism, unspecified; E66.3 Overweight; E55.9 Vitamin D deficiency, unspecified
CPT/HCPCS: 83550

== ENCOUNTER → 2017-11-05 | Outpatient (REF) | payer OTHER | LOC: M SFHCADAM 15:58 | DX: E03.9 Hypothyroidism, unspecified (principal) ==

== ENCOUNTER → 2017-11-06 | Outpatient (REF) | payer OTHER ==
[2017-11-06 14:43] LABS: FREE T4 0.95 NG/DL (0.76-1.46)
== END ==
LOC: M SFHCADAM 09:03
DX: E03.9 Hypothyroidism, unspecified (principal)

== ENCOUNTER → 2018-05-17 | Outpatient (REF) | payer OTHER ==
[~2018-05-17] MED LIST changes: -BUPIVACAINE HCL 0.25% 30 ML VIAL As Ordered ONE; -KETOROLAC 30 MG/ML VIAL (J1885) As Ordered ONE; -KETOROLAC 30 MG/ML VIAL (J1885) IV PRN; -KETOROLAC 30 MG/ML VIAL (J1885) IV SCH; -LIDOCAINE 2% INJ 100 MG/5 ML SDV (FOR ANES.) As Ordered ONE; -LR 1,000 ML IV ONE; -LR 1,000 ML IV SCH; -MIDAZOLAM INJ 2 MG/2 ML VIAL (J2250) As Ordered ONE; -ONDANSETRON 4MG/2ML VIAL (J2405) As Ordered ONE; -ONDANSETRON 4MG/2ML VIAL (J2405) IV PRN; -PERCOCET 5MG/325MG TAB PO PRN; -PROPOFOL 200 MG/20 ML VIAL As Ordered ONE; -ROCURONIUM BROMIDE 50 MG/5 ML VIAL/SYRINGE As Ordered ONE; -dexameTHASONE 4 MG/ML 1ML VIAL (J1100) As Ordered ONE; -fentaNYL 100 MCG/2 ML INJECTION (J3010) As Ordered ONE; -fentaNYL 100 MCG/2 ML INJECTION (J3010) IV PRN
[2018-05-17 12:59] LABS: FREE T4 0.92 NG/DL (0.76-1.46); THYROID STIMULATING HORMONE 4.51 uIU/ML (0.358-3.740)
== END ==
LOC: M SFHCADAM 10:11
PROVIDERS: ATTEND Physician Assistant Medical
DX: E03.9 Hypothyroidism, unspecified (principal)

== ENCOUNTER → 2019-01-13 | Outpatient (REF) | payer OTHER ==
[2019-01-13 13:05] LABS: BASO # 0.1 10^3/uL (0.0-0.2); BASO % 0.7 % (0.0-1.0); EOS # 0.1 10^3/uL (0.0-0.5); EOS % 1.2 % (0.0-3.0); HEMATOCRIT 41.8 % (36.0-47.0); HEMOGLOBIN 13.5 g/dl (12.0-15.5); LYMPH # 1.8 10^3/uL (1.5-5.0); LYMPH % 24.9 % (24.0-44.0); MEAN CORPUSCULAR HEMOGLOBIN 30.2 pg (27.0-33.0); MEAN CORPUSCULAR HGB CONC 32.3 g/dl (32.0-36.5); MEAN CORPUSCULAR VOLUME 93.5 fl (80.0-96.0); MONO # 0.7 10^3/uL (0.0-0.8); MONO % 10.2 % (0.0-5.0); NEUTROPHILS # 4.5 10^3/uL (1.5-8.5); NEUTROPHILS % 62.6 % (36.0-66.0); PLATELET COUNT, AUTOMATED 276 10^3/uL (150-450); RED BLOOD COUNT 4.47 10^6/uL (4.00-5.40); WHITE BLOOD COUNT 7.2 10^3/uL (4.0-10.0)
[2019-01-13 13:32] LABS: ALBUMIN 3.9 GM/DL (3.2-5.2); ALT/SGPT 37 U/L (12-78); BILIRUBIN,TOTAL 0.3 MG/DL (0.2-1.0); BLOOD UREA NITROGEN 11 MG/DL (7-18); CARBON DIOXIDE LEVEL 29 MEQ/L (21-32); CHLORIDE LEVEL 106 MEQ/L (98-107); CHOLESTEROL LEVEL 244 MG/DL (<200); CHOLESTEROL RISK RATIO 4.603 (<5); CREATININE FOR GFR 0.77 MG/DL (0.55-1.30); FREE T4 0.91 NG/DL (0.76-1.46); GLOMERULAR FILTRATION RATE > 60.0 (>58); GLUCOSE, FASTING 103 MG/DL (70-100); HDL CHOLESTEROL 53 MG/DL (>40); NON-HDL-C 191 MG/DL; POTASSIUM SERUM 4.2 MEQ/L (3.5-5.1); SODIUM LEVEL 140 MEQ/L (136-145); TOTAL PROTEIN 7.5 GM/DL (6.4-8.2); TRIGLYCERIDES LEVEL 401 MG/DL (<150)
== END ==
LOC: M SFHCADAM 10:37
PROVIDERS: ATTEND Physician Assistant Medical
DX: E03.9 Hypothyroidism, unspecified (principal); D50.0 Iron deficiency anemia secondary to blood loss (chronic); E66.3 Overweight; E55.9 Vitamin D deficiency, unspecified

== ENCOUNTER → 2021-05-24 | Outpatient (REF) | payer OTHER ==
[2021-05-24 13:12] LABS: BASO # 0.1 10^3/uL (0.0-0.2); BASO % 0.7 % (0.0-1.0); EOS # 0.1 10^3/uL (0.0-0.5); EOS % 1.5 % (0.0-3.0); HEMATOCRIT 41.5 % (36.0-47.0); HEMOGLOBIN 13.8 g/dl (12.0-15.5); LYMPH # 1.7 10^3/uL (1.5-5.0); MEAN CORPUSCULAR HEMOGLOBIN 30.6 pg (27.0-33.0); MEAN CORPUSCULAR HGB CONC 33.3 g/dl (32.0-36.5); MONO # 0.8 10^3/uL (0.0-0.8); MONO % 12.4 % (2.0-8.0); NEUTROPHILS # 3.9 10^3/uL (1.5-8.5); PLATELET COUNT, AUTOMATED 249 10^3/uL (150-450); RED BLOOD COUNT 4.51 10^6/uL (4.00-5.40); WHITE BLOOD COUNT 6.7 10^3/uL (4.0-10.0)
[2021-05-24 17:13] LABS: ALBUMIN 3.8 GM/DL (3.2-5.2); ALT/SGPT 46 U/L (12-78); BILIRUBIN,TOTAL 0.3 MG/DL (0.2-1.0); BLOOD UREA NITROGEN 10 MG/DL (7-18); CALCIUM LEVEL 9.6 MG/DL (8.5-10.1); CARBON DIOXIDE LEVEL 28 MEQ/L (21-32); CHLORIDE LEVEL 109 MEQ/L (98-107); CHOLESTEROL LEVEL 274 MG/DL (<200); CHOLESTEROL RISK RATIO 6.372 (<5); CREATININE FOR GFR 0.65 MG/DL (0.55-1.30); GLOMERULAR FILTRATION RATE > 60.0 (>51); GLUCOSE, FASTING 107 MG/DL (70-100); HDL CHOLESTEROL 43 MG/DL (>40); LDL CHOLESTEROL 171 MG/DL (<100); NON-HDL-C 231 MG/DL; POTASSIUM SERUM 4.2 MEQ/L (3.5-5.1); SODIUM LEVEL 140 MEQ/L (136-145); TOTAL PROTEIN 7.2 GM/DL (6.4-8.2); TRIGLYCERIDES LEVEL 300 MG/DL (<150)
[2021-05-24 17:14] LABS: TOTAL 25(OH) VITAMIN D 35.1 NG/ML (30.0-100.0)
== END ==
LOC: M SFHCADAM 10:35
PROVIDERS: ATTEND Physician Assistant Medical
DX: E03.9 Hypothyroidism, unspecified (principal); E78.1 Pure hyperglyceridemia; E66.3 Overweight; E55.9 Vitamin D deficiency, unspecified